=== PATIENT | male | born 1990 | race Hispanic/Latino ===

== ENCOUNTER 2021-07-16 22:18 | Emergency (ER) | payer OTHER, SELFPAY ==
[~2021-07-16] VITALS: Ht 167.6 cm; Wt 77.1 kg
[2021-07-16 22:21] VITALS: BP 132/80
== END 2021-07-17 00:48 | disposition left against medical advice (07) ==
LOC: EDH 22:18
DX: U07.1 COVID-19 (principal); R06.02 Shortness of breath
CPT/HCPCS: 71045